=== PATIENT | female | born 1970 | race Hispanic/Latino ===

== ENCOUNTER → 2017-11-13 | Outpatient (CLI) | payer BC | END | disposition home or self-care (01) | LOC: RAH 14:36 | PROVIDERS: ATTEND Obstetrics & Gynecology | DX: Z12.31 Encounter for screening mammogram for malignant neoplasm of breast (principal) | CPT/HCPCS: 77067 ==

== ENCOUNTER → 2017-12-21 | Outpatient (CLI) | payer BC | END | disposition home or self-care (01) | LOC: RAH 13:41 | PROVIDERS: ATTEND Obstetrics & Gynecology | DX: N63.20 Unspecified lump in the left breast, unspecified quadrant (principal); R92.2 Inconclusive mammogram; R92.8 Other abnormal and inconclusive findings on diagnostic imaging of breast | CPT/HCPCS: 76641; 77065 ==

== ENCOUNTER → 2018-06-13 | Outpatient (CLI) | payer BC | END | disposition home or self-care (01) | LOC: RAH 06:56 | PROVIDERS: ATTEND Internal Medicine | DX: S83.207A Unspecified tear of unspecified meniscus, current injury, left knee, initial encounter (principal); M71.22 Synovial cyst of popliteal space [Baker], left knee; M25.462 Effusion, left knee; X58.XXXA Exposure to other specified factors, initial encounter; Y93.89 Activity, other specified; Y92.89 Other specified places as the place of occurrence of the external cause; Y99.8 Other external cause status | CPT/HCPCS: 73721 ==

== ENCOUNTER → 2018-11-30 | Outpatient (CLI) | payer BC | END | disposition home or self-care (01) | LOC: RAH 10:24 | PROVIDERS: ATTEND Internal Medicine | DX: Z12.31 Encounter for screening mammogram for malignant neoplasm of breast (principal) | CPT/HCPCS: 77067 ==

== ENCOUNTER → 2020-01-30 | Outpatient (CLI) | payer BC | END | disposition home or self-care (01) | LOC: RAH 09:14 | PROVIDERS: ATTEND Family Medicine | DX: Z12.31 Encounter for screening mammogram for malignant neoplasm of breast (principal) | CPT/HCPCS: 77067 ==

== ENCOUNTER → 2023-02-03 | Outpatient (CLI) | payer BC | END | disposition home or self-care (01) | LOC: RAH 08:27 | PROVIDERS: ATTEND Family Medicine | DX: Z12.31 Encounter for screening mammogram for malignant neoplasm of breast (principal) | CPT/HCPCS: 77067 ==

== ENCOUNTER → 2024-02-09 | Outpatient (CLI) | payer BC | END | disposition home or self-care (01) | LOC: RAH 08:22 | PROVIDERS: ATTEND Physician Assistant Medical | DX: Z12.31 Encounter for screening mammogram for malignant neoplasm of breast (principal) | CPT/HCPCS: 77067 ==

== ENCOUNTER → 2025-02-13 | Outpatient (CLI) | payer BC | END | disposition home or self-care (01) | LOC: RAH 08:59 | PROVIDERS: ATTEND Physician Assistant Medical | DX: Z12.31 Encounter for screening mammogram for malignant neoplasm of breast (principal) | CPT/HCPCS: 77067 ==

== ENCOUNTER → 2025-05-30 | Outpatient (CLI) | payer BC ==
--- NOTE | 2025-06-04 06:54 | HMCIMG ---
EXAMINATION: COMPLETE TRANSABDOMINAL ULTRASOUND OF PELVIS. CLINICAL HISTORY: Pain. COMPARISON: CT of the abdomen and pelvis dated 05/30/2025. TECHNIQUE: Multiple real-time grayscale images of the pelvis were obtained with transabdominal transducer. In addition, color Doppler is medically necessary to perform to assess for vascularity and blood flow. FINDINGS: The uterus is anteverted, normal in caliber and measures 7.1 x 2.9 x 3.2 cm in the craniocaudal, AP, and transverse dimensions respectively. The endometrium measures approximately 0.22 cm. Cervix appears normal. The right ovary is normal in caliber and measures 2.0 x 1.2 x 1.6 cm. The left ovary is obscured by overlying bowel gas. There is no free fluid in the cul-de-sac. IMPRESSION: No significant abnormality. /Isha
--- NOTE | 2025-06-04 12:35 | HMCIMG ---
EXAM: CT Abdomen and Pelvis Without IV Contrast CLINICAL HISTORY: Hematuria, unspecified. TECHNIQUE: Axial computed tomography images of the abdomen and pelvis were obtained without intravenous contrast. CONTRAST: No IV contrast. COMPARISON: None provided. FINDINGS: LUNG BASES: The lung bases appear clear. No pleural effusions are seen. LIVER: Liver shows mild diffuse low attenuation consistent with fatty infiltration (fatty liver). No focal hepatic lesion identified. GALLBLADDER AND BILE DUCTS: Gallbladder is surgically absent. Common bile duct appears within normal limits in caliber with no intrahepatic biliary dilatation. PANCREAS: Normal in size and contour. No peripancreatic stranding or fluid collection. SPLEEN: Unremarkable in size and attenuation. ADRENAL GLANDS: Normal bilaterally. KIDNEYS, URETERS, AND BLADDER: Both kidneys are normal in size and morphology. No hydronephrosis, hydroureter, or urinary calculi are seen. Urinary bladder appears within normal limits. STOMACH AND BOWEL: Uncomplicated colonic diverticulosis is noted, predominantly involving the sigmoid colon. No evidence of diverticulitis, obstruction, enteritis, or colitis. Stomach appears unremarkable. APPENDIX: Appendix is visualized and within normal limits. PERITONEUM: No free fluid or free intraperitoneal air. LYMPH NODES: No pathologically enlarged lymph nodes identified. REPRODUCTIVE: Visualized reproductive organs appear unremarkable. VASCULATURE: Abdominal aorta and its major branches are normal in caliber without aneurysm or dissection. BONES: Visualized bony structures demonstrate no acute osseous abnormality or aggressive lesion. Mild degenerative changes noted. IMPRESSION: 1. Fatty liver. 2. Uncomplicated colonic diverticulosis, predominantly in the sigmoid colon. 3. Status post cholecystectomy. 4. No acute intraabdominal or pelvic pathology. /Johnson
== END | disposition home or self-care (01) ==
LOC: RAH 10:11
PROVIDERS: ATTEND Nurse Practitioner Family
DX: K76.0 Fatty (change of) liver, not elsewhere classified (principal); K57.30 Diverticulosis of large intestine without perforation or abscess without bleeding; R10.20 Pelvic and perineal pain unspecified side; R31.9 Hematuria, unspecified; M47.817 Spondylosis without myelopathy or radiculopathy, lumbosacral region; Z90.49 Acquired absence of other specified parts of digestive tract
CPT/HCPCS: 74176; 76856